=== PATIENT | female | born 1930 | race Caucasian/White ===

== ENCOUNTER 2017-03-13 10:29 | Emergency (ER) | payer MEDICARE, BC ==
[~2017-03-13] VITALS: Ht 162.6 cm; Wt 63.0 kg
[~2017-03-13 10:29] MED LIST: SYNT50TA PO
[2017-03-13 10:37] VITALS: BP 125/58; PULSE 56; RESP 18; TEMP 97.5; O2SAT 97
[2017-03-13] MEDS ORDERED: LEVO.05 PO (10:41)
[2017-03-13] MEDS ORDERED: SODIUM CHLORIDE 0.9% FLUSH 10 ML FLUSH IVF PRN (11:15)
[2017-03-13] MEDS ORDERED: SODIUM CHLOR 0.9% 1000 ML INJ 1,000 ML IV ONE (11:15)
[2017-03-13] MEDS ORDERED: MECLIZINE HCL 25 MG TAB PO ONE (11:15)
--- NOTE | 2017-03-13 11:25 | PD ---
HPI Chief Complaint: Fall Time Seen by Provider: 11:05 Travel History International Travel<30 days: No Contact w/Intl Traveler<30days: No Traveled to known affect area: No History of Present Illness HPI This patient was feeling dizzy. She describes a room spinning sensation. He had some nausea as well. This caused her to lose balance and fall. She did not have loss of consciousness. She did hit the side of her head on a cabinet but does not have any head or neck pain. She still has some vertigo-like sensation. Symptoms severity is moderate. No alleviating factors. Takes no blood thinners. Duration 4 hours PFSH Past Medical History Arthritis: Yes Anxiety: Yes Depression: No Heart Rhythm Problems: No Cancer: No Cardiovascular Problems: No High Cholesterol: No Chest Pain: Yes Congestive Heart Failure: No Cerebrovascular Accident: No Diabetes: No Diminished Hearing: No Endocrine: Yes Genitourinary: No Immune Disorder: No Implanted Vascular Access Dvce: Yes Musculoskeletal: Yes Neurologic: No Psychiatric: Yes Respiratory: No Migraines: No Seizures: No Thyroid Disease: Yes (HYPOTHYROIDISM) Tetanus Vaccination: Unknown Influenza Vaccination: Yes ?: Not Menopausal: Yes Past Surgical History Abdominal Surgery: Yes (GALL BLADDER REMOVED) AICD: No Cardiac Surgery: No Cholecystectomy: Yes Ear Surgery: No Endocrine Surgery: No Eye Surgery: Yes (bilateral cataract) Genitourinary Surgery: No Gynecologic Surgery: No Joint Replacement: Yes (RT KNEE REPLACED) Oral Surgery: No Pacemaker: No Thoracic Surgery: No Other Surgery: Yes Social History Alcohol Use: Yes (1 BEER NIGHTLY) Tobacco Use: No Substance Use: No Allergies-Medications (Allergen,Severity, Reaction): Coded Allergies: Iodine (Unverified Allergy, Unknown, rash, 03/13/17) Reported Meds & Prescriptions Reported Meds & Active Scripts Active Meclizine (Meclizine HCl) 25 Mg Tab 25 Mg PO TID PRN Reported Synthroid (Levothyroxine Sodium) 50 Mcg Tab 50 Mcg PO DAILY Review of Systems ROS Limitations: Clinical Condition General / Constitutional: No: Fever Eyes: No: Visual changes HENT: Positive: Vertigo, No: Headaches Cardiovascular: No: Chest Pain or Discomfort Respiratory: No: Shortness of Breath Gastrointestinal: No: Abdominal Pain Genitourinary: No: Dysuria Musculoskeletal: No: Pain Skin: No Rash Neurologic: Positive: Dizziness, No: Weakness Psychiatric: No: Depression Endocrine: No: Polydipsia Hematologic/Lymphatic: No: Easy Bruising Physical Exam Narrative GENERAL: Well-nourished, well-developed patient in no apparent distress. SKIN: Focused skin assessment reveals no rash and nodules. Skin is Warm and dry. HEAD: Patient has a 1 cm laceration to the right druze. Normocephalic. EYES: Pupils equal and round. No scleral icterus. No injection or drainage. ENT: No nasal bleeding or discharge. Mucous membranes pink and moist. NECK: Trachea midline. No JVD. No midline tenderness CARDIOVASCULAR: Regular rate and rhythm. No murmur appreciated. RESPIRATORY: No accessory muscle use. Clear to auscultation. Breath sounds equal bilaterally. GASTROINTESTINAL: Abdomen soft, non-tender, nondistended. Hepatic and splenic margins not palpable. MUSCULOSKELETAL: No obvious deformities. No clubbing. No cyanosis. No edema. NEUROLOGICAL: Awake and alert. No obvious cranial nerve deficits. Motor grossly within normal limits. Normal speech. PSYCHIATRIC: Appropriate mood and affect; insight and judgment normal. Data Data Last Documented VS Vital Signs Date Time Temp Pulse Resp B/P Pulse Ox O2 Delivery O2 Flow Rate FiO2 03/13/17 11:30 57 21 109/55 98 Room Air 03/13/17 10:37 97.5 Orders Electrocardiogram (03/13/17 ) Basic Metabolic Panel (Bmp) (03/13/17 11:08) Complete Blood Count With Diff (03/13/17 11:08) Ecg Monitoring (03/13/17 11:08) Iv Access Insert/Monitor (03/13/17 11:08) Oximetry (03/13/17 11:08) Sodium Chloride 0.9% Flush (Ns Flush) (03/13/17 11:15) Sodium Chlor 0.9% 1000 Ml Inj (Ns 1000 M (03/13/17 11:15) Meclizine (Antivert) (03/13/17 11:15) Labs Laboratory Tests Test 03/13/17 10:40 White Blood Count 6.2 TH/MM3 Red Blood Count 4.75 MIL/MM3 Hemoglobin 12.7 GM/DL Hematocrit 40.2 % Mean Corpuscular Volume 84.7 FL Mean Corpuscular Hemoglobin 26.7 PG Mean Corpuscular Hemoglobin 31.6 % Concent Red Cell Distribution Width 14.5 % Platelet Count 122 TH/MM3 Mean Platelet Volume 10.2 FL Neutrophils (%) (Auto) 72.4 % Lymphocytes (%) (Auto) 17.8 % Monocytes (%) (Auto) 7.5 % Eosinophils (%) (Auto) 1.4 % Basophils (%) (Auto) 0.9 % Neutrophils # (Auto) 4.5 TH/MM3 Lymphocytes # (Auto) 1.1 TH/MM3 Monocytes # (Auto) 0.5 TH/MM3 Eosinophils # (Auto) 0.1 TH/MM3 Basophils # (Auto) 0.1 TH/MM3 CBC Comment DIFF FINAL Differential Comment Sodium Level 140 MEQ/L Potassium Level 3.9 MEQ/L Chloride Level 106 MEQ/L Carbon Dioxide Level 27.2 MEQ/L Anion Gap 7 MEQ/L Blood Urea Nitrogen 13 MG/DL Creatinine 0.63 MG/DL Estimat Glomerular Filtration 89 ML/MIN Rate Random Glucose 105 MG/DL Calcium Level 8.5 MG/DL MDM Medical Decision Making Medical Screen Exam Complete: Yes Emergency Medical Condition: Yes Medical Record Reviewed: Yes Differential Diagnosis Positional vertigo, labyrinthitis, dehydration Narrative Course I have reviewed the patient's electronic medical record. Patient is neurologically intact without headache. No indication for brain imaging. LACERATION LOCATION: Right druze LENGTH: 1 cm NUMBER OF STITCHES/BRAYDEN: 1 REPAIR: The area of the laceration was cleaned with normal saline. No anesthesia required. The wound was closed using 1 staple. This was a single layer repair. A sterile dressing was applied. The patient was advised to keep the dressing clean and dry. Patient tolerated the procedure well. Recommend staple removal in 10 days IV placed CBC shows minimal thrombocytopenia but otherwise normal Metabolic profile is normal I gave her 1 L normal saline IV and a dose of meclizine Patient is improved on recheck but still has some residual vertigo I prescribed her meclizine and warned her about potential sedation Recommending walker use for the short term until this resolves to limit her fall risk She is stable for outpatient follow-up I don't see indication for hospitalization at this point. We will mobilize Departure Forms: Tests/Procedures Additional Instructions: Use head injury precautions Staple removal 10 days The patient was warned about potential sedation for the medications they will receive on prescription. The patient was advised to follow up with their physician and return if they worsen. Use walker to limit fall risk Med/Other Pt SpecificInfo: Prescription(s) given Scripts Meclizine 25 Mg Tab25 Mg PO TID PRN (VERTIGO) #20 TAB Ref 0 Prov:Anuj Smiley MD 03/13/17 Disposition: 01 DISCHARGE HOME Condition: Stable Anuj Smiley MD Mar 13, 2017 11:25
[2017-03-13 11:30] VITALS: BP 109/55; PULSE 57; RESP 21; O2SAT 98
[2017-03-13 12:07] LABS: AUTOMATED NEUTROPHIL # 4.5 TH/MM3 (1.8-7.7); BASOPHIL # 0.1 TH/MM3 (0-0.2); BASOPHIL % 0.9 % (0.0-2.0); EOSINOPHIL # 0.1 TH/MM3 (0-0.4); EOSINOPHIL % 1.4 % (0.0-4.0); HEMATOCRIT 40.2 % (35.0-46.0); HEMO FLAGS DIFF FINAL; LYMPH % 17.8 % (9.0-44.0); LYMPHOCYTE # 1.1 TH/MM3 (1.0-4.8); MEAN CELL VOLUME 84.7 FL (80.0-100.0); MEAN CORPUSCULAR HEMOGLOBIN 26.7 PG (27.0-34.0); MEAN CORPUSCULAR HGB CONC 31.6 % (32.0-36.0); MONO % 7.5 % (0.0-8.0); NEUT % 72.4 % (16.0-70.0); PLATELET COUNT 122 TH/MM3 (150-450); RED BLOOD COUNT 4.75 MIL/MM3 (4.00-5.30); RED CELL DISTRIBUTION WIDTH 14.5 % (11.6-17.2); WHITE BLOOD COUNT 6.2 TH/MM3 (4.0-11.0)
[2017-03-13 12:30] VITALS: BP 105/55; PULSE 72; RESP 18; O2SAT 96
[2017-03-13 12:35] LABS: BICARBONATE 27.2 MEQ/L (21.0-32.0); POTASSIUM 3.9 MEQ/L (3.5-5.1)
[2017-03-13] MEDS ORDERED: MECL-62 PO (13:07)
[2017-03-13] MEDS ORDERED: TETANUS/DIPHTHERIA TOXOID PEDIATRIC 0.5 ML VIAL IM ONE (13:15)
[2017-03-13 13:27] VITALS: BP 108/56; RESP 16
[2017-03-13 13:29] VITALS: BP 103/59; RESP 20
[2017-03-13] MEDS ORDERED: TETANUS/DIPHTHERIA TOXOID ADULT 0.5 ML VIAL IM ONE (14:00)
--- NOTE | 2017-03-13 14:00 | EKG ---
Date Performed: 03/13/2017 Time Performed: 10:41:07 PTAGE: 86 years EKG: SINUS BRADYCARDIA WITH FIRST DEGREE AV BLOCK WITH OCCASIONAL SUPRAVENTRICULAR PREMATURE COM PLEXES LOW QRS VOLTAGE IN PRECORDIAL LEADS LEFT AXIS DEVIATION POOR R WAVE PROGRESSION - PROBABLY NOR MAL VARIANT Since previous tracing, no significant change noted ABNORMAL ECG PREVIOUS TRACING : 04/19/2015 00.53 DOCTOR: Jona Smalls Interpretating Date/Time 03/13/2017 13:59:34
--- NOTE | 2017-03-13 14:37 | RADRPT ---
EXAM DATE/TIME: 03/13/2017 14:29 [facility] COMPARISON: No previous studies available for comparison. INDICATIONS : Fall today onto left side of head RADIATION DOSE: 33.37 CTDIvol (mGy) MEDICAL HISTORY : Hypothyroidism. SURGICAL HISTORY : None. ENCOUNTER: Initial ACUITY: 1 day PAIN SCALE: 4/10 LOCATION: Left head TECHNIQUE: Multiple contiguous axial images were obtained of the head. Using automated exposure control and adj ustment of the mA and/or kV according to patient size, radiation dose was kept as low as reasonably a chievable to obtain optimal diagnostic quality images. FINDINGS: There is no evidence for intracranial hemorrhage, mass effect, mass lesions, or edema. The visualize d bony structures appear intact. Slight degree of brain atrophy is seen. Slight periventricular whit e matter changes are seen nonspecific mostly consistent with chronic small vessel ischemic changes. There are no signs of acute infarction for technique. CONCLUSION: Slight atrophic and small vessel ischemic changes without any evidence for acute hemorrhage or mass effect. Mary Monroy MD on March 13, 2017 at 14:34 Board Certified Radiologist. This report was verified electronically.
== END 2017-03-13 16:11 | disposition home or self-care (01) ==
LOC: NEPC 10:29
DX: S01.81XA Laceration without foreign body of other part of head, initial encounter (principal); R42 Dizziness and giddiness; R11.0 Nausea; R00.1 Bradycardia, unspecified; I44.0 Atrioventricular block, first degree; E03.9 Hypothyroidism, unspecified; D69.6 Thrombocytopenia, unspecified; Z23 Encounter for immunization; W19.XXXA Unspecified fall, initial encounter; Y93.9 Activity, unspecified; Y92.9 Unspecified place or not applicable; Y99.8 Other external cause status
CPT/HCPCS: 12001; 70450; 80048; 85025; 90471; 90714; 93005; 96360; 99284; J7030

== ENCOUNTER 2017-04-06 11:49 | Emergency (ER) | payer MEDICARE, BC ==
[~2017-04-06] VITALS: Ht 154.9 cm; Wt 61.5 kg
[~2017-04-06 11:49] MED LIST changes: +LEVO.05 PO; +MECL-62 PO; -SYNT50TA PO
[2017-04-06 11:54] VITALS: BP 136/63; PULSE 64; RESP 15; TEMP 98; O2SAT 100
[2017-04-06] MEDS ORDERED: ZOFR4TAB PO (12:20)
--- NOTE | 2017-04-06 12:20 | PD ---
HPI Chief Complaint: Dizziness Time Seen by Provider: 12:07 Travel History International Travel<30 days: No Contact w/Intl Traveler<30days: No Traveled to known affect area: No History of Present Illness HPI This patient complains of vertigo. It started last night. She's had it before. I saw her 3 weeks ago for the same thing. She had a room spinning dizziness. She took a meclizine this morning and does feel improved. She did call paramedics who brought her here for evaluation. The patient says that after the paramedics arrived she decided she really didn't want to come here and felt better but the paramedics said they had to bring her so they did. She now feels improved but is anxious about how she is going to get home. I have the vocational case manager talking with her now. Symptoms severity at this time is mild. It was improved with meclizine which she has a supply at home. She does not of headache or head injury. There was no fall. Duration is one day PFSH Past Medical History Arthritis: Yes Anxiety: Yes Depression: No Heart Rhythm Problems: No Cancer: No Cardiovascular Problems: No High Cholesterol: No Chest Pain: Yes Congestive Heart Failure: No Cerebrovascular Accident: No Diabetes: No Diminished Hearing: No Endocrine: Yes Genitourinary: No Immune Disorder: No Implanted Vascular Access Dvce: Yes Musculoskeletal: Yes Neurologic: No Psychiatric: Yes Respiratory: No Migraines: No Seizures: No Thyroid Disease: Yes (HYPOTHYROIDISM) ?: Not Menopausal: Yes Past Surgical History Abdominal Surgery: Yes (GALL BLADDER REMOVED) AICD: No Cardiac Surgery: No Cholecystectomy: Yes Ear Surgery: No Endocrine Surgery: No Eye Surgery: Yes (bilateral cataract) Genitourinary Surgery: No Gynecologic Surgery: No Joint Replacement: Yes (RT KNEE REPLACED) Oral Surgery: No Pacemaker: No Thoracic Surgery: No Other Surgery: Yes Social History Alcohol Use: Yes (1 BEER NIGHTLY) Tobacco Use: No Substance Use: No Allergies-Medications (Allergen,Severity, Reaction): Coded Allergies: Iodine (Unverified Allergy, Unknown, rash, 04/06/17) Reported Meds & Prescriptions Reported Meds & Active Scripts Active Zofran (Ondansetron HCl) 4 Mg Tab 4 Mg PO Q6HR PRN Meclizine (Meclizine HCl) 25 Mg Tab 25 Mg PO TID PRN Reported Synthroid (Levothyroxine Sodium) 50 Mcg Tab 50 Mcg PO DAILY Review of Systems General / Constitutional: No: Fever Eyes: No: Visual changes HENT: Positive: Vertigo, No: Headaches Cardiovascular: No: Chest Pain or Discomfort Respiratory: No: Shortness of Breath Gastrointestinal: No: Abdominal Pain Genitourinary: No: Dysuria Musculoskeletal: No: Pain Skin: No Rash Neurologic: Positive: Dizziness, No: Weakness Psychiatric: No: Depression Endocrine: No: Polydipsia Hematologic/Lymphatic: No: Easy Bruising Physical Exam Narrative GENERAL: Well-nourished, well-developed patient in no apparent distress. SKIN: Focused skin assessment reveals no rash and nodules. Skin is Warm and dry. HEAD: Atraumatic. Normocephalic. EYES: Pupils equal and round. No scleral icterus. No injection or drainage. ENT: No nasal bleeding or discharge. Mucous membranes pink and moist. NECK: Trachea midline. No JVD. CARDIOVASCULAR: Regular rate and rhythm. No murmur appreciated. RESPIRATORY: No accessory muscle use. Clear to auscultation. Breath sounds equal bilaterally. GASTROINTESTINAL: Abdomen soft, non-tender, nondistended. Hepatic and splenic margins not palpable. MUSCULOSKELETAL: No obvious deformities. No clubbing. No cyanosis. No edema. NEUROLOGICAL: Awake and alert. No obvious cranial nerve deficits. Motor grossly within normal limits. Normal speech. PSYCHIATRIC: Anxious mood and affect; insight and judgment normal. Data Data Last Documented VS Vital Signs Date Time Temp Pulse Resp B/P Pulse Ox O2 Delivery O2 Flow Rate FiO2 04/06/17 11:54 98.0 64 15 136/63 100 MDM Medical Decision Making Medical Screen Exam Complete: Yes Emergency Medical Condition: Yes Medical Record Reviewed: Yes Differential Diagnosis Positional vertigo, anxiety, labyrinthitis Narrative Course I have reviewed the patient's electronic medical record. I reviewed the visit from March 15, 2017 including labs and brain CT in my report Patient is clinically improved and now minimally symptomatic Her vertigo is much better She is neurologically intact I don't feel repeated workup would be helpful in this case to change any management cardiac cath lab manager Iesha is working on transportation Going to have her hang out in the room for while and I will recheck her later Zofran prescribed On recheck she is still doing well Diagnosis Primary Impression: Vertigo Additional Instructions: The patient was advised to follow up with their physician and return if they worsen. Use meclizine as needed and watch for sedation Use walker for the short term until symptoms have resolved completely Med/Other Pt SpecificInfo: Prescription(s) given Scripts Ondansetron (Zofran)4 Mg Tab4 Mg PO Q6HR PRN (NAUSEA OR VOMITING) #12 TAB Ref 0 Prov:Anuj Smiley MD 04/06/17 Disposition: 01 DISCHARGE HOME Condition: Stable Anuj Smiley MD April 06, 2017 12:20
[2017-04-06 13:08] VITALS: BP 132/61
--- NOTE | 2017-04-07 06:18 | EKG ---
Date Performed: 04/06/2017 Time Performed: 11:52:56 PTAGE: 86 years EKG: Sinus bradycardia Left axis deviation QRS changes V3/V4 may be due to LVH but cannot rule o ut anterior infarct Low QRS voltages in precordial leads Abnormal ECG PREVIOUS TRACING : 03/13/2017 10.41 Compared to prior tracing no significant change DOCTOR: Tanisha Worthy Interpretating Date/Time 04/07/2017 06:18:15
== END 2017-04-06 13:10 | disposition home or self-care (01) ==
LOC: PHED 11:49
DX: R42 Dizziness and giddiness (principal); R00.1 Bradycardia, unspecified; E03.9 Hypothyroidism, unspecified
CPT/HCPCS: 93005; 99284